=== PATIENT | male | born 1995 | race Asian ===

== ENCOUNTER 2020-06-14 16:18 | Emergency (ER) | payer MEDICAID ==
[~2020-06-14] VITALS: Ht 157.5 cm; Wt 55.0 kg
[~2020-06-14 16:18] MED LIST: MIRT15TA6 PO
[2020-06-14 16:23] VITALS: BP 130/73
== END 2020-06-14 18:35 | disposition home or self-care (01) ==
LOC: EMS 16:18
DX: H00.015 Hordeolum externum left lower eyelid (principal)
CPT/HCPCS: 99283; Z7502